=== PATIENT | male | born 2000 | race Caucasian/White ===

== ENCOUNTER → 2018-07-15 | Outpatient (REF) | payer OTHER ==
[2018-07-15 17:26] LABS: PLATELET COUNT, AUTOMATED 322 K/uL (150-450)
== END ==
PROVIDERS: ATTEND Nurse Practitioner Family
DX: R10.9 Unspecified abdominal pain (principal)
CPT/HCPCS: 82040; 82247; 82310; 82374; 82435; 82565; 82947; 84075; 84132; 84155; 84295; 84450; 84460; 84520; 85025

== ENCOUNTER → 2018-07-18 | Outpatient (REF) | payer OTHER ==
[2018-07-18 10:29] LABS: PLATELET COUNT, AUTOMATED 247 K/uL (150-450)
== END ==
PROVIDERS: ATTEND Nurse Practitioner Family
DX: R19.7 Diarrhea, unspecified (principal)
CPT/HCPCS: 82040; 82247; 82274; 82310; 82374; 82435; 82565; 82947; 83630; 84075; 84132; 84155; 84295; 84450; 84460; 84520; 85025; 87045; 87324; 87449